=== PATIENT | male | born 1955 | race Asian ===

== ENCOUNTER → 2016-07-20 | Outpatient (CLI) | payer OTHER ==
[~2016-07-20] MED LIST: "\\\"PREP SPRAY\\\"-TIN4 OZ"; ASPIRIN EC81 MG PO; LIPITOR20 M1 PO; LOPRESSOR25 MG PO; MUCOMYST 20200 MG/M1 PO; NORCO 5-325 MG1 TAB PO; OMNICEF 300MG300 MG PO; VITAMIN D-32000 UNI1 PO
[2016-07-20 15:30] LABS: ALBUMIN 4.3 gm/dL (3.5-5.0); ANION GAP 13.2 (10.0-19.0); CALCIUM 9.1 mg/dL (8.5-10.5); CREATININE 1.7 mg/dL (0.6-1.3); POTASSIUM 4.2 mMol/L (3.7-5.1); TOTAL BILIRUBIN 1.8 mg/dL (0.0-1.5); TOTAL PROTEIN 7.9 g/dL (6.0-8.4)
== END | disposition disaster alternative care site (69) ==
LOC: GLAB 14:31 → GRAD 16:00
PROVIDERS: Urology
DX: R31.0 Gross hematuria (principal); Z53.9 Procedure and treatment not carried out, unspecified reason

== ENCOUNTER → 2016-07-27 | Outpatient (CLI) | payer OTHER ==
[2016-07-27 07:17] LABS: CREATININE 1.3 mg/dL (0.6-1.3)
== END | disposition disaster alternative care site (69) ==
LOC: GOPD 07-26
PROVIDERS: Urology
DX: R31.0 Gross hematuria (principal); N26.1 Atrophy of kidney (terminal)
CPT/HCPCS: J2001; J7060; Q9967